=== PATIENT | male | born 1940 | race Caucasian/White ===

== ENCOUNTER → 2016-05-31 | Outpatient (CLI) | payer MEDICARE ==
--- NOTE | ~2016-05-31 | ECH ---
Transthoracic Echocardiography Report (TTE) Demographics Patient Name CAMPBELL ECHAVARRIA Date of Study 05/31/2016 Patient Number [id number] Visit Number [id number] Date of 1940 Room Number Accession Number [id number] Gender Male Age 75 year(s) Referring Loretta Marina Resource Recovery Specialist Heavenly Melgoza Physician JASMINE Nunez MD Physician Interpreting Elizabeth Hoffman MD Senior Account Executive Physician Supervising Ordering Physician Kareen Nunez MD/MLP Nurse Stress Commercial [employer] Underwriter Conclusions Summary Technically adequate exam. The estimated left ventricular ejection fraction is 60%. The right atrium is mildly dilated. Mild tricuspid regurgitation by color Doppler. Normal pulmonary pressures. The ascending aorta appears mildly dilated. The maximum diameter measures 3.5 cm. Procedure Type of Study TTE procedure:Echo Complete SF. Procedure Date Date: 05/31/2016 Start: 09:13 AM Technical Quality: Adequate visualization Indications:Pulmonary hypertension, Coronary artery disease and History of CABG. Appropriate Use Criteria: 9 Height: 68 inches Weight: 235 pounds BSA: 2.19 m Rhythm: Sinus bradycardia HR: 56 bpm BP: 120/60 mmHg Allergies - Other:Reaction - Other;Severity - Moderate;Sensitivity - Intolerance (Atorvastatin-myalgias). M-Mode/2D Measurements LV Diastolic Dimension: 5.87 cm LV Systolic Dimension: 3.2 cm LV Septum Diastolic: 0.96 cm LV PW Diastolic: 0.98 cm AO Root Dimension: 3.21 cm Cardiac Output: 6.45 l/min LA Dimension: 4.53 cm Cardiac Index: 2.95 l/min*m RV Diastolic Dimension: 4.52 cm LA volume index: 33 ml/m LVOT: 2.07 cm LVOT VTI: 34.24 cm RV Base: 3.3 cm LV Stroke volume: 115.17 ml RV Mid: 1.8 cm LV Stroke volume index: 52.59 ml/m TAPSE: 2 cm TDI-S': 10 cm/s Doppler Measurements AV Peak Velocity: 1.8 m/s MV Peak E-Wave: 1.02 m/s AV Peak Gradient: 12.96 mmHg MV Peak A-Wave: 0.68 m/s AV Mean Gradient: 7.53 mmHg MV E/A Ratio: 1.49 LVOT Peak Velocity: 1.35 m/s MV P1/2t: 59.3 msec AV Area (Continuity):2.76 cm MV Deceleration Time: 186.5 msec TR Velocity:2.51 m/s MV Area (PHT): 3.71 cm TR Gradient:25.2 mmHg PV Peak Velocity: 1.22 m/s Estimated RAP:3 mmHg PV Peak Gradient: 5.92 mmHg Estimated RVSP: 28 mmHg Estimated PASP: 28.2 mmHg E' Septal Velocity: 0.07 m/s A' Septal Velocity: 0.08 m/s E' Lateral Velocity: 0.13 m/s A' Lateral Velocity: 0.07 m/s RA Area: 21.08 cm Findings Left Ventricle Normal left ventricle size and function. Diastolic assessment reveals normal relaxation. Right Ventricle Normal right ventricle structure and function. Left Atrium Normal left atrial size. Right Atrium The right atrium is mildly dilated. Mitral Valve Normal mitral valve structure and function. Trivial mitral regurgitation by color Doppler. Aortic Valve The aortic valve is mildly sclerotic. Tricuspid Valve Normal tricuspid valve structure and function. Mild tricuspid regurgitation by color Doppler. Normal pulmonary pressures. Pulmonic Valve Normal pulmonic valve structure and function. Mild pulmonic valve regurgitation by color Doppler. Pericardial Effusion No evidence of pericardial effusion. Miscellaneous The ascending aorta appears mildly dilated. The maximum diameter measures 3.5 cm. Pleural Effusion No evidence of pleural effusion. Signature
== END | disposition home or self-care (01) ==
LOC: CARD 08:53
DX: I51.9 Heart disease, unspecified (principal); I27.2 Other secondary pulmonary hypertension; I07.1 Rheumatic tricuspid insufficiency

== ENCOUNTER → 2016-08-22 | Outpatient (CLI) | payer MEDICARE | END | disposition home or self-care (01) | LOC: PTH.S 09:24 → RAD.S 10:00 | DX: I71.4 Abdominal aortic aneurysm, without rupture (principal); R91.1 Solitary pulmonary nodule; Z95.828 Presence of other vascular implants and grafts ==